=== PATIENT | female | born 1960 | race Caucasian/White ===

== ENCOUNTER 2018-01-04 08:46 | Inpatient (IN) | payer BC ==
[2018-01-04] MEDS ORDERED: NS 0.9% 1000 ML*IV.FLUID IV ONE (09:23)
[2018-01-04] MEDS ORDERED: Ketorolac INJ* 30 MG/ML 1 ML VIAL IV PUSH ONE (09:24)
[2018-01-04 09:59] LABS: ABS Basophils 0 10^3/ul (0-0.2); ABS Eosinophils 0 10^3/ul (0-0.6); ABS Lymphocytes 0.5 10^3/ul (1.0-4.8); ABS Monocytes 0.5 10^3/ul (0-0.8); ABS Neutrophils 7.3 10^3/ul (1.5-7.7); ABS Nucleated RBC 0 10^3/ul; Eosinophil % 0.5 % (0-6); Hematocrit 34 % (35-47); Hemoglobin 11.4 g/dl (12.0-16.0); Lymphocyte % 6.4 % (25-47); Mean Corpuscular HGB Conc 34 g/dl (31-36); Mean Corpuscular Hemoglobin 29 pg (27-31); Mean Corpuscular Volume 87 fL (80-97); Mean Platelet Volume 7.5 um3 (7.4-10.4); Nucleated Red Blood Cells % 0.1; Platelet Count 252 10^3/ul (150-450); Red Blood Count 3.89 10^6/ul (4.00-5.40); Red Cell Distribution Width 14 % (10.5-15); White Blood Count 8.4 10^3/ul (3.5-10.8)
--- NOTE | 2018-01-04 10:06 | ED ---
HPI Chest Pain - HPI Summary HPI Summary: This patient is a 57 year old F BIBA accompanied by her with a chief complaint of left posterior shoulder blade pain since 5:30 AM. Pt was sleeping when she was woken up by pain in her left shoulder. Since onset, the pain has radiated to her chest and neck. The patient rates the pain 5/10 in severity. Symptoms partially alleviated by aspirin and 2 NTG that were both administered by EMS. Patient reports fever, CP, mild cough, and sore throat, but states that she has had a cold for a month. Patient denies ear pain, trouble urinating, or hematuria. PMHx of PNA and bronchitis. No PMHx of CAD. Pt does not smoke tobacco. Pt does not take any medication regularly. - History of Current Complaint Chief Complaint: EDChestPainROMI Time Seen by Provider: 01/04/18 09:06 Hx Obtained From: Patient Onset/Duration: Started Hours Ago - 5:30 Timing: Constant, Lasting Hours Initial Severity: Moderate Current Severity: Moderate Pain Intensity: 4 Pain Scale Used: 0-10 Numeric Chest Pain Location: Mid Sternal Chest Pain Radiates: Yes Chest Pain Radiates To:: Back, Shoulder - left Character: Dull/Aching, Pressure/Squeezing Associated Signs and Symptoms: Positive: Chest Pain, Fever, Cough, Back Pain - Allergy/Home Medications Allergies/Adverse Reactions: Allergies Allergy/AdvReac Type Severity Reaction Status Date / Time Penicillins Allergy Rash Verified 01/04/18 08:59 Home Medications: Home Medications Acetylcysteine [Nac] 500 mg PO BID 01/04/18 [History Confirmed 01/04/18] Calcium Carbonate [Calcium] 150 mg PO DAILY 01/04/18 [History Confirmed 01/04/18 ] Cholecalciferol TAB* [Vitamin D TAB*] 5,000 units PO DAILY 01/04/18 [History Confirmed 01/04/18] Magnesium Oxide [Magnesium] 250 mg PO DAILY 01/04/18 [History Confirmed 01/04/18 ] Phosphorous 250 mg Tablet 1 tab PO DAILY 01/04/18 [History Confirmed 01/04/18] Selenium 100 mcg PO DAILY 01/04/18 [History Confirmed 01/04/18] Taurine [Nikhil Taurine] 2,000 mg PO DAILY 01/04/18 [History Confirmed 01/04/18] Vitamin B Complex CAP* [B Complex CAP*] 1 cap PO DAILY 01/04/18 [History Confirmed 01/04/18] Vitamin E Mixed [E400 Mixed] 400 unit PO DAILY 01/04/18 [History Confirmed 01/04] Zinc 50 mg PO DAILY 01/04/18 [History Confirmed 01/04/18] PMH/Surg Hx/FS Hx/Imm Hx Respiratory History: Reports: Hx Pneumonia History: Denies: Hx Dialysis EENT History: Denies: Hx Deafness Infectious Disease History: No Infectious Disease History: Denies: Traveled Outside the [place] in Last 30 Days - Family History Known Family History: Positive: Other - PNA - Social History Alcohol Use: Occasionally Substance Use Type: Reports: None Smoking Status (MU): Never Smoked Tobacco Review of Systems Positive: Fever Positive: Sore Throat. Negative: Ear Ache Positive: Chest Pain Positive: Cough Negative: dysuria, hematuria Positive: Other - Back Pain All Other Systems Reviewed And Are Negative: Yes Physical Exam - Summary Physical Exam Summary: Appearance: Well appearing, no pain distress Skin: warm, dry, reflects adequate perfusion. No rash. Bilateral skin ecchymosis present on the LE's. Head/face: normal Eyes: EOMI, DICK ENT: normal. Throat is clear. Neck: supple, non-tender Respiratory: CTA, breath sounds present. Cardiovascular: RRR, pulses symmetrical. Fine crackle in the left base. Elevated HR, nml BP. Abdomen: non-tender, soft Bowel Sounds: present Musculoskeletal: normal, strength/ROM intact. No TTP in the back. Neuro: normal, sensory motor intact, A&Ox3. Triage Information Reviewed: Yes Vital Signs On Initial Exam: Initial Vitals Temp Pulse Resp BP Pulse Ox 101.7 F 93 15 109/62 95 01/04/18 08:59 01/04/18 08:59 01/04/18 08:59 01/04/18 08:59 01/04/18 08:59 Vital Signs Reviewed: Yes Diagnostics - Vital Signs Vital Signs Temp Pulse Resp BP Pulse Ox 01/04/18 08:59 101.7 F 93 15 109/62 95 - Laboratory Lab Results: Lab Results 01/04/18 Range/Units 09:38 WBC 8.4 (3.5-10.8) 10^3/ul RBC 3.89 L (4.00-5.40) 10^6/ul Hgb 11.4 L (12.0-16.0) g/dl Hct 34 L (35-47) % MCV 87 (80-97) fL MCH 29 (27-31) pg MCHC 34 (31-36) g/dl RDW 14 (10.5-15) % Plt Count 252 (150-450) 10^3/ul MPV 7.5 (7.4-10.4) um3 Neut % (Auto) 87.0 H (38-83) % Lymph % (Auto) 6.4 L (25-47) % [place] % (Auto) 5.9 (0-7) % Eos % (Auto) 0.5 (0-6) % Baso % (Auto) 0.2 (0-2) % Absolute Neuts (auto) 7.3 (1.5-7.7) 10^3/ul Absolute Lymphs (auto) 0.5 L (1.0-4.8) 10^3/ul Absolute Monos (auto) 0.5 (0-0.8) 10^3/ul Absolute Eos (auto) 0 (0-0.6) 10^3/ul Absolute Basos (auto) 0 (0-0.2) 10^3/ul Absolute Nucleated RBC 0 10^3/ul Nucleated RBC % 0.1 Result Diagrams: 01/04/18 09:38 01/04/18 09:38 Lab Statement: Any lab studies that have been ordered have been reviewed, and results considered in the medical decision making process. - Radiology CXR Radiology Interpretation Completed By: Radiologist - CHEST X-RAY FINDINGS ARE MOST CONSISTENT WITH A LEFT UPPER LOBE SEGMENTAL PNEUMONIA. I RECOMMEND FOLLOW- UP IMAGING AFTER AN APPROPRIATE COURSE OF PHARMACOTHERAPY TO ASCERTAIN RESOLUTION. ED Physician reviewed this report - EKG 9:33 Cardiac Rate: NL - 94 bpm EKG Rhythm: Sinus Rhythm ST Segment: Normal EKG Interpretation: nml axis, nml interval Chest Pain Course/Dx - Course Course Of Treatment: Patient with abrupt onset of high fever, left posterior thoracic back pain. She has had minor cough and head cold for the last several days. CRP is grossly elevated but white count is normal. She has large lobar infiltrate in the left upper lobe. IV Levaquin was started and she will be admitted to the hospitalist service. Her pain is improved here. - Chest Pain Differential Diagnosis/HQI/PQRI: Acute SD, Aortic Aneurysm, GI Disease, Lower Respiratory Infection - Diagnoses Provider Diagnoses: PNA (pneumonia), Back pain, Sepsis - Provider Notifications Discussed Care Of Patient With: Citlali Bruno Time Discussed With Above Provider: 11:06 Instructed by Provider To: Admit As Inpatient Discharge - Sign-Out/Discharge Documenting (check all that apply): Patient Departure - Admit - Discharge Plan Condition: Fair Disposition: ADMITTED TO [facility] Referrals: No Primary Care Phys,NOPCP [Primary Care Provider] - - Billing Disposition and Condition Condition: FAIR Disposition: Admitted to [facility]
[2018-01-04 10:07] LABS: INR 1.13 (0.77-1.02)
[2018-01-04 10:13] LABS: EGFR Non-African American 128.1 (>60)
[2018-01-04 10:33] LABS: Urine Appearance Cloudy; Urine Blood Negative (Negative); Urine Color Amber; Urine Ketones 2+ (Negative); Urine Protein Negative (Negative); Urine Specific Gravity 1.023 (1.010-1.030); Urine Urobilinogen Negative (Negative)
[2018-01-04] MEDS ORDERED: Levofloxacin 750 MG IVPREMIX(* 750 MG/150 ML BAG IVPB ONE (10:55)
--- NOTE | 2018-01-04 10:55 | RAD ---
INDICATION: Fever and chest pain COMPARISON: None TECHNIQUE: PA and lateral views of the chest were obtained. FINDINGS: The heart and mediastinum are normal in size and contour. Overlying the left upper lobe and abutting the upper mediastinum is a density measuring 6.8 x 7.8 cm in the AP projection. This density is localized to the left upper lobe on the lateral view chest x-ray. The remaining visualized lungs are well aerated. Visualized bones are normal for the patient's age. There is no radiographic evidence of free air beneath the diaphragm IMPRESSION: CHEST X-RAY FINDINGS ARE MOST CONSISTENT WITH A LEFT UPPER LOBE SEGMENTAL PNEUMONIA. I RECOMMEND FOLLOW-UP IMAGING AFTER AN APPROPRIATE COURSE OF PHARMACOTHERAPY TO ASCERTAIN RESOLUTION.
[2018-01-04] MEDS ORDERED: Iohexol 350* (CONTRAST) 500 ML MDV IV ONE (11:42)
--- NOTE | 2018-01-04 12:06 | RAD ---
INDICATION: Shortness of breath and chest pain COMPARISON: None TECHNIQUE: Axial source images were acquired following the administration of 59 mL Omnipaque [address] angiographic technique. Coronal and sagittal reconstructed images were constructed and reviewed. FINDINGS: There there are no filling defects in the pulmonary arteries to indicate acute pulmonary embolic disease. There is a density with air bronchograms located at the medial aspect of the left upper lobe abutting the superior mediastinum and upper hilum that measures 4.8 x 6.8 cm in the axial plane and 7.7 cm in cephalocaudal projection. The heart is normal in size. There is no evidence of pericardial effusion. There is no evidence of aortic aneurysm or dissection. There is no definite mediastinal, hilar, or axillary lymphadenopathy. The visualized osseous structures appear normal. Limited views of the upper abdomen show no abnormalities. IMPRESSION: 1. No CT of evidence of pulmonary embolism. 2. Left upper lobe pneumonia with air bronchograms as described above. Recommend follow-up thoracic imaging after an appropriate course of therapy to ascertain resolution.
[2018-01-04] MEDS ORDERED: traMADol TAB* 50 MG PO PRN (12:48)
[2018-01-04] MEDS ORDERED: Ketorolac INJ* 15 MG/ML 1 ML VIAL IV PUSH PRN (12:49)
[2018-01-04] MEDS ORDERED: NS 0.9% 1000 ML* 1,000 ML IV SCH (13:00)
--- NOTE | 2018-01-04 15:36 | HP ---
HOSPITAL MEDICINE HISTORY AND PHYSICAL: DATE OF ADMISSION: 01/04/18 PRIMARY CARE PHYSICIAN: None. ATTENDING PHYSICIAN: Dr. Citlali Bruno * (dictation provided by Jessenia Coy NP ) CHIEF COMPLAINT: Chest pain. HISTORY OF PRESENT ILLNESS: Ms. Birmingham is a 57-year-old female with no known past medical history, who presents today to the hospital with concern for chest pain. Ms. Birmingham states that she is visiting from [place] and will be in the area until . Over the past month or so, she has been "battling a head cold." She states she has been using a neti pot to help clean her sinuses and has just felt very congested and stuffy. She has had a sore throat at night. She describes one episode of "eustachian tube pain" on the left side that resolved spontaneously. She was feeling well yesterday. She has had no cough. She had no fever. This morning, at approximately 5 a.m., she was woken suddenly from sleep with severe chest pain in the left side radiating into her shoulder. In the emergency room, Ms. Birmingham had a chest x-ray, which showed a left upper lobe infiltrate. Her white blood cell count is normal. Her BUN and creatinine are normal. Her CRP is elevated to 118.16. Troponin is 0.01. Her EKG showed sinus rhythm with a heart rate of 90 with no evidence of ischemia. PAST MEDICAL HISTORY: None. ALLERGIES: To PENICILLINS. FAMILY HISTORY: The patient reports her mother and father are alive and well. Her had does have hypertension. SOCIAL HISTORY: The patient denies smoking. She reports drinking alcohol occasionally. No report of drug use. She lives with her , who is the healthcare proxy. REVIEW OF SYSTEMS: A 14-point review of systems was completed with Ms. Birmingham and all those not mentioned above were negative. PHYSICAL EXAMINATION GENERAL: Ms. Birmingham is crying when I come in to the room. She states she is having severe discomfort when she takes a deep breath or moves around in the bed at all along the left side of her chest, but she is in no acute distress. VITAL SIGNS: Temperature 101.7, heart rate 89, respiratory rate 24, O2 saturation 96% on room air, blood pressure 112/61. LUNGS: Have rhonchi in the left middle to upper lobe, clear on the right, clear in the bases. HEART: S1, S2. No murmur, rub, or gallop, and regular. ABDOMEN: Soft and nontender with bowel sounds positive x4. EXTREMITIES: No cyanosis or edema. NEURO: She is alert, she is oriented x3. She moves all extremities equally. There is no facial asymmetry or focal weakness. Extraocular movements are intact. SKIN: Intact. DIAGNOSTIC STUDIES/LAB DATA: Sodium 140, potassium 3.9, chloride 106, serum bicarbonate 26, BUN 7, creatinine 0.50, glucose 108, lactic acid 0.7. Troponin 0.01. CRP 118.16. WBC 8.4, hemoglobin 11.4, hematocrit 34, platelet count 252. INR 1.13. Urine shows no evidence of infection. Chest x-ray shows "chest x-ray findings are most consistent with left upper lobe segmental pneumonia. I recommend followup imaging after appropriate course of pharmacotherapy to ascertain resolution." Chest thorax CTA is read as follows: "No CT evidence for pulmonary embolism, left upper lobe pneumonia with air bronchograms as described above, recommend followup thoracic imaging after an appropriate course of therapy to ascertain resolution." ASSESSMENT AND PLAN: Ms. Birmingham is a 57-year-old female with no known past medical history, who has had about a month of head cold with very mild symptoms , who now presents with the sudden onset of sharp pain on the left side of her chest and into her left shoulder, found to have a large left upper lobe pneumonia. My plans are for observation in the hospital for the followin. Pneumonia: The patient is meeting sepsis criteria for systemic inflammatory response syndrome criteria with tachypnea, mild tachycardia, and fever. Her white blood cell count is normal. Her CRP is elevated. She has a significant pneumonia on the left side. She also has quite severe pain. Our plans will be to observe her overnight. She will have Levaquin for antibiotic coverage. Blood cultures have been sent. Lactic acid is normal. We will seek to obtain better pain control with use of multiple agents including Toradol, Tylenol, tramadol, and oxycodone. The patient will have oxygen available p.r.n., but she is not needing that at this point. 2. DVT prophylaxis with SCDs. 3. Code status is full code. TIME SPENT: Approximately 60 minutes was spent on the admission of this patient ; more than half of the time was spent with the patient at the bedside reviewing the events leading up to this hospitalization, performing the physical examination, and reviewing my plan of care. JESSENIA COY NP [id number]/[facility] #: [id number] ANGELA
[2018-01-04] MEDS: Magnesium Oxide TAB* 400 MG PO SCH (17:23)
[2018-01-04] MEDS: oxyCODONE TAB* 5 MG TAB PO PRN ×2 (17:28→21:41)
[2018-01-04] MEDS: Benzocaine/Menthol LOZ* 1 LOZENGE PO PRN (22:18)
[2018-01-05] MEDS: oxyCODONE TAB* 5 MG TAB PO PRN ×3 (03:43→13:31)
[2018-01-05 06:50] LABS: ABS Basophils 0 10^3/ul (0-0.2); ABS Eosinophils 0.1 10^3/ul (0-0.6); ABS Lymphocytes 0.9 10^3/ul (1.0-4.8); ABS Monocytes 0.6 10^3/ul (0-0.8); ABS Neutrophils 4.4 10^3/ul (1.5-7.7); ABS Nucleated RBC 0 10^3/ul; Eosinophil % 1.6 % (0-6); Hematocrit 30 % (35-47); Hemoglobin 10.3 g/dl (12.0-16.0); Lymphocyte % 14.9 % (25-47); Mean Corpuscular HGB Conc 34 g/dl (31-36); Mean Corpuscular Hemoglobin 30 pg (27-31); Mean Corpuscular Volume 88 fL (80-97); Mean Platelet Volume 7.7 um3 (7.4-10.4); Nucleated Red Blood Cells % 0.1; Platelet Count 186 10^3/ul (150-450); Red Blood Count 3.46 10^6/ul (4.00-5.40); Red Cell Distribution Width 14 % (10.5-15)
[2018-01-05 07:06] LABS: EGFR Non-African American 110.1 (>60)
[2018-01-05] MEDS: Levofloxacin TAB* 750 MG PO SCH (08:14)
[2018-01-05] MEDS: Cholecalciferol TAB* 1000 UNITS PO SCH (08:14)
[2018-01-05] MEDS ORDERED: Calcium Carbonate TAB* 1250 MG (CALCIUM 500 MG) PO SCH (09:00)
[2018-01-05] MEDS: Albuterol/Ipratropium NEB.SOL* Albuterol 2.5 MG/Ipratropium 0.5 MG 3 ML INH SCH ×3 (14:20→21:26)
--- NOTE | 2018-01-05 15:46 | PN ---
Subjective Date of Service: 01/05/18 Interval History: Patient seen and examined. Patient states she is feeling like her breathing is somewhat improved, however, she now has cough, and continues to use O2 at rest. Noted her respirations are shallow, as she states she has pain with mild inspiratory effort. Denies chest pain, Objective Active Medications: Acetaminophen (Tylenol Tab*) 650 mg PO Q6H PRN PRN Reason: pain/fever Albuterol/Ipratropium (Duoneb (Albuterol 2.5 Mg/Ipratropium 0.5 Mg)) 1 neb INH Q4H [facility] Stop: 01/05/18 21:11 Last Admin: 01/05/18 14:20 Dose: 1 neb Cholecalciferol (Vitamin D Tab*) 5,000 units PO DAILY [facility] Last Admin: 01/05/18 08:14 Dose: 5,000 units Guaifenesin (Mucinex*) 600 mg PO BID [facility] Ketorolac Tromethamine (Toradol Inj*) 15 mg IV PUSH Q6H PRN PRN Reason: PAIN Levofloxacin (Levaquin Tab*) 750 mg PO DAILY [facility] Last Admin: 01/05/18 08:14 Dose: 750 mg Magnesium Oxide (Magox 400 Tab*) 400 mg PO 1800 [facility] Last Admin: 01/04/18 17:23 Dose: 400 mg Oxycodone HCl (Roxycodone Tab*) 5 mg PO Q4H PRN PRN Reason: PAIN Last Admin: 01/05/18 13:31 Dose: 5 mg Throat Lozenges (Chloraseptic Kim*) 1 kim PO Q6H PRN PRN Reason: SORE THROAT Last Admin: 01/04/18 22:18 Dose: 1 kim Tramadol HCl (Ultram*) 100 mg PO Q6H PRN PRN Reason: PAIN Last Admin: 01/04/18 16:03 Dose: 100 mg Vital Signs - 8 hr 01/05/18 01/05/18 01/05/18 08:00 08:15 11:17 Temperature 99.2 F Pulse Rate 79 Respiratory 18 18 12 Rate Blood Pressure 105/57 (mmHg) O2 Sat by Pulse 96 Oximetry 01/05/18 01/05/18 01/05/18 12:02 13:31 14:24 Temperature Pulse Rate 84 Respiratory 18 20 20 Rate Blood Pressure (mmHg) O2 Sat by Pulse 99 Oximetry Oxygen Devices in Use Now: Nasal Cannula Appearance: alert, NAD Eyes: No Scleral Icterus, PERRLA Ears/Nose/Mouth/Throat: NL Teeth, Lips, Gums, Mucous Membranes Moist Neck: NL Appearance and Movements; NL JVP, Trachea Midline Respiratory: Symmetrical Chest Expansion and Respiratory Effort, - - low lung volumes, diminished bases mild exp wheeze on left, not able to expectorate Cardiovascular: NL Sounds; No Murmurs; No JVD, RRR Abdominal: NL Sounds; No Tenderness; No Distention Extremities: No Edema Skin: No Rash or Ulcers Neurological: Alert and Oriented x 3, NL Gait, NL Muscle Strength and Tone Nutrition: Taking PO's Result Diagrams: 01/05/18 06:10 01/05/18 06:10 Additional Lab and Data: Lab Results 01/04/18 Range/Units 09:38 WBC 8.4 (3.5-10.8) 10^3/ul RBC 3.89 L (4.00-5.40) 10^6/ul Hgb 11.4 L (12.0-16.0) g/dl Hct 34 L (35-47) % MCV 87 (80-97) fL MCH 29 (27-31) pg MCHC 34 (31-36) g/dl RDW 14 (10.5-15) % Plt Count 252 (150-450) 10^3/ul MPV 7.5 (7.4-10.4) um3 Neut % (Auto) 87.0 H (38-83) % Lymph % (Auto) 6.4 L (25-47) % [place] % (Auto) 5.9 (0-7) % Eos % (Auto) 0.5 (0-6) % Baso % (Auto) 0.2 (0-2) % Absolute Neuts (auto) 7.3 (1.5-7.7) 10^3/ul Absolute Lymphs (auto) 0.5 L (1.0-4.8) 10^3/ul Absolute Monos (auto) 0.5 (0-0.8) 10^3/ul Absolute Eos (auto) 0 (0-0.6) 10^3/ul Absolute Basos (auto) 0 (0-0.2) 10^3/ul Absolute Nucleated RBC 0 10^3/ul Nucleated RBC % 0.1 Microbiology and Other Data: Microbiology 01/04/18 09:50 Aerobic Blood Culture - Preliminary Blood Venous No Growth Day 1 Anaerobic Blood Culture - Preliminary No Growth Day 1 01/04/18 09:38 Aerobic Blood Culture - Preliminary Blood Venous No Growth Day 1 Anaerobic Blood Culture - Preliminary No Growth Day 1 01/04/18 09:38 Legionella Urinary Antigen - Final Urine Negative Legionella Antigen Streptococcus pneumoniae Ag Screen - Final Negative S. pneumo Antigen Assess/Plan/Problems-Billing Assessment: This is a 57 year old female with that presented to ER with CAP, meeting SIRS criteria, admitted for same. - Patient Problems (1) CAP (community acquired pneumonia) Code(s): J18.9 - PNEUMONIA, UNSPECIFIED ORGANISM SNOMED Code(s): 018859080 Comment: - Continue levaquin - Add IS - Add duoneb x3 - Add mucinex - O2 for support, wean down (2) SIRS (systemic inflammatory response syndrome) Code(s): R65.10 - SIRS OF NON-INFECTIOUS ORIGIN W/O ACUTE ORGAN DYSFUNCTION SNOMED Code(s): 667807934 Comment: - Hypotension resolved - Fever resolved/improved - Continue to monitor and follow cultures Status and Disposition: If patient can wean off O2 may be able to DC in AM.
[2018-01-05] MEDS: Magnesium Oxide TAB* 400 MG PO SCH (17:33)
[2018-01-05] MEDS: Acetaminophen TAB* 325 MG PO PRN (19:31)
[2018-01-05] MEDS: guaiFENesin ER TAB 600 MG PO SCH (20:15)
[2018-01-06] MEDS: Cholecalciferol TAB* 1000 UNITS PO SCH (07:44)
[2018-01-06] MEDS: Levofloxacin TAB* 750 MG PO SCH (07:44)
[2018-01-06] MEDS: guaiFENesin ER TAB 600 MG PO SCH ×2 (07:44→21:21)
[2018-01-06 11:08] LABS: ABS Basophils 0 10^3/ul (0-0.2); ABS Eosinophils 0.1 10^3/ul (0-0.6); ABS Lymphocytes 0.5 10^3/ul (1.0-4.8); ABS Monocytes 0.8 10^3/ul (0-0.8); ABS Neutrophils 7.2 10^3/ul (1.5-7.7); ABS Nucleated RBC 0 10^3/ul; Eosinophil % 1.1 % (0-6); Hematocrit 32 % (35-47); Hemoglobin 11.2 g/dl (12.0-16.0); Lymphocyte % 5.3 % (25-47); Mean Corpuscular HGB Conc 35 g/dl (31-36); Mean Corpuscular Hemoglobin 30 pg (27-31); Mean Corpuscular Volume 86 fL (80-97); Mean Platelet Volume 7.4 um3 (7.4-10.4); Nucleated Red Blood Cells % 0; Platelet Count 245 10^3/ul (150-450); Red Blood Count 3.77 10^6/ul (4.00-5.40); Red Cell Distribution Width 14 % (10.5-15); White Blood Count 8.6 10^3/ul (3.5-10.8)
--- NOTE | 2018-01-06 12:25 | PN ---
Subjective Date of Service: 01/06/18 Interval History: Patient seen and examined. Fever overnight, sttes cough is now productive. Off O2, no SOB. Complaining of pimple-like lesion on left anterior chest that seems to be more red and diffuse today, also painful. Requested RN to james erythema yesterday, appears to be slightly past the margins today. Denies chills, no headache, no n/v, no futher complaints. Objective Active Medications: Acetaminophen (Tylenol Tab*) 650 mg PO Q6H PRN PRN Reason: pain/fever Last Admin: 01/05/18 19:31 Dose: 650 mg Cholecalciferol (Vitamin D Tab*) 5,000 units PO DAILY [facility] Last Admin: 01/06/18 07:44 Dose: 5,000 units Guaifenesin (Mucinex*) 600 mg PO BID [facility] Last Admin: 01/06/18 07:44 Dose: 600 mg Ketorolac Tromethamine (Toradol Inj*) 15 mg IV PUSH Q6H PRN PRN Reason: PAIN Levofloxacin (Levaquin Tab*) 750 mg PO DAILY [facility] Last Admin: 01/06/18 07:44 Dose: 750 mg Magnesium Oxide (Magox 400 Tab*) 400 mg PO 1800 [facility] Last Admin: 01/05/18 17:33 Dose: 400 mg Oxycodone HCl (Roxycodone Tab*) 5 mg PO Q4H PRN PRN Reason: PAIN Last Admin: 01/05/18 13:31 Dose: 5 mg Throat Lozenges (Chloraseptic Kim*) 1 kim PO Q6H PRN PRN Reason: SORE THROAT Last Admin: 01/04/18 22:18 Dose: 1 kim Tramadol HCl (Ultram*) 100 mg PO Q6H PRN PRN Reason: PAIN Last Admin: 01/04/18 16:03 Dose: 100 mg Vital Signs - 8 hr 01/06/18 01/06/18 01/06/18 07:46 08:05 11:16 Temperature 98.1 F 99.3 F Pulse Rate 95 103 Respiratory 18 18 16 Rate Blood Pressure 109/67 111/65 (mmHg) O2 Sat by Pulse 97 95 Oximetry Oxygen Devices in Use Now: None Appearance: Alert, NAD Eyes: No Scleral Icterus, PERRLA Ears/Nose/Mouth/Throat: NL Teeth, Lips, Gums, Mucous Membranes Moist Neck: NL Appearance and Movements; NL JVP, Trachea Midline Respiratory: - - shallow respirations with improved air exchange, diminished bases with bilateral rhonchi Cardiovascular: NL Sounds; No Murmurs; No JVD, RRR, No Edema Extremities: No Edema, No Clubbing, Cyanosis Neurological: Alert and Oriented x 3, NL Sensation, NL Gait Nutrition: Taking PO's Result Diagrams: 01/06/18 10:55 01/05/18 06:10 Additional Lab and Data: Lab Results 01/04/18 Range/Units 09:38 WBC 8.4 (3.5-10.8) 10^3/ul RBC 3.89 L (4.00-5.40) 10^6/ul Hgb 11.4 L (12.0-16.0) g/dl Hct 34 L (35-47) % MCV 87 (80-97) fL MCH 29 (27-31) pg MCHC 34 (31-36) g/dl RDW 14 (10.5-15) % Plt Count 252 (150-450) 10^3/ul MPV 7.5 (7.4-10.4) um3 Neut % (Auto) 87.0 H (38-83) % Lymph % (Auto) 6.4 L (25-47) % [place] % (Auto) 5.9 (0-7) % Eos % (Auto) 0.5 (0-6) % Baso % (Auto) 0.2 (0-2) % Absolute Neuts (auto) 7.3 (1.5-7.7) 10^3/ul Absolute Lymphs (auto) 0.5 L (1.0-4.8) 10^3/ul Absolute Monos (auto) 0.5 (0-0.8) 10^3/ul Absolute Eos (auto) 0 (0-0.6) 10^3/ul Absolute Basos (auto) 0 (0-0.2) 10^3/ul Absolute Nucleated RBC 0 10^3/ul Nucleated RBC % 0.1 Microbiology and Other Data: Microbiology 01/04/18 09:50 Aerobic Blood Culture - Preliminary Blood Venous No Growth Day 1 Anaerobic Blood Culture - Preliminary No Growth Day 1 01/04/18 09:38 Aerobic Blood Culture - Preliminary Blood Venous No Growth Day 1 Anaerobic Blood Culture - Preliminary No Growth Day 1 01/04/18 09:38 Legionella Urinary Antigen - Final Urine Negative Legionella Antigen Streptococcus pneumoniae Ag Screen - Final Negative S. pneumo Antigen Assess/Plan/Problems-Billing Assessment: This is a 57 year old female with that presented to ER with CAP, meeting SIRS criteria, admitted for same, now noting area of erythema and pimple like lesion on left anterior chest. - Patient Problems (1) CAP (community acquired pneumonia) Code(s): J18.9 - PNEUMONIA, UNSPECIFIED ORGANISM SNOMED Code(s): 397745194 Comment: - Continue levaquin, IS, albuterol Q4 PRN and mucinex - Off O2 - Repeat WBC is normal, CRP has increased to 248.3 (2) SIRS (systemic inflammatory response syndrome) Code(s): R65.10 - SIRS OF NON-INFECTIOUS ORIGIN W/O ACUTE ORGAN DYSFUNCTION SNOMED Code(s): 039854114 Comment: - Hypotension resolved - Fever persisted overnight with mild tachycardia - Cultures remain negative - Concern that fever may be from new cellulitis on chest? Cannot r/o MRSA, as this has developed over the last 24 hours (3) Cellulitis of chest wall Code(s): L03.313 - CELLULITIS OF CHEST WALL SNOMED Code(s): 19571105 Comment: - Patient states she thinks she may have had a bug bite at admission, as she was at an outdoor wedding - No fluctuence noted, but there is a small area of induration at the center with surrounding erythema and pain on left anterior chest below the clavicle - Will attempt to culture center, does not need full I&D - After culture, will add one dose vancomycin, additional blood cultures given fever started after this lesion was noted, may consult ID depending on results Status and Disposition: If patient can wean off O2 may be able to DC in AM.
[2018-01-06] MEDS ORDERED: Vancomycin(*) 1,000 MG in NS 0.9% 250 ML* 250 ML IVPB ONE (12:45)
[2018-01-06] MEDS ORDERED: Vancomycin per Pharmacy* NOTE FOLLOW UP PRN (12:54)
[2018-01-06] MEDS: Acetaminophen TAB* 325 MG PO PRN (16:28)
[2018-01-06] MEDS: Magnesium Oxide TAB* 400 MG PO SCH (17:15)
--- NOTE | 2018-01-06 20:24 | PN ---
Hospitalist Progress Note Date of Service: 01/06/18 Noted that patient's left chest wall has a 4-5cm area of erythema, pain and some itching on the left neck. Appears to have small area of clear crusting in center that looks like it may have been a bug bite or scratch. Area of erythema has spread beyond the markings from yesterday. Explained to patient that I would like to attempt a culture swab on the area in the center to assess for exudate and test for pathogens, primarily MRSA. Benefits and risks explained in detail. Patient agreeable. Consent obtained. Time out called. Area draped and swabbed with betadine. 21 gauge needle used to gently scrape center of induration and unroof crusted center. No pus noted, no overt exudative material noted, no fluctuance. Some blood oozing. Wound swabbed and sent for culture. Patient reported no pain and tolerated procedure well. Dry non-adherent dressing applied. Region of erythema re-marked by RN at bedside. Please see paper chart for further documentation. Patient placed on vancomycin. Consult with Dr. Mcgee ordered.
[2018-01-06] MEDS: Vancomycin(*) 750 MG in NS 0.9% 250 ML* 250 ML IVPB SCH (21:21)
[2018-01-07] MEDS: Vancomycin(*) 750 MG in NS 0.9% 250 ML* 250 ML IVPB SCH ×2 (05:50→16:00)
[2018-01-07] MEDS: Levofloxacin TAB* 750 MG PO SCH (09:23)
[2018-01-07] MEDS: guaiFENesin ER TAB 600 MG PO SCH ×2 (09:23→22:02)
[2018-01-07] MEDS: Cholecalciferol TAB* 1000 UNITS PO SCH (09:23)
[2018-01-07] MEDS: Benzonatate CAP* 100 MG PO SCH ×2 (12:04→22:01)
[2018-01-07] MEDS: Benzocaine/Menthol LOZ* 1 LOZENGE PO PRN ×2 (12:05→22:02)
[2018-01-07] MEDS ORDERED: Vancomycin Trough Check NOTE FOLLOW UP ONE (14:00)
--- NOTE | 2018-01-07 14:51 | PN ---
Subjective Date of Service: 01/07/18 Interval History: Patient seen and examined. Several discussions with Dr. Mcgee re: POC and atbx. Patient is now expectorating and having less bony chest pain, but significant cough overnight that prevented her from sleeping. Still with fevers , does feel pain around chest cellulitis is improving. Does state she is having RUQ sharp pains after eating and now at rest which is new for her. Objective Active Medications: Acetaminophen (Tylenol Tab*) 650 mg PO Q6H PRN PRN Reason: pain/fever Last Admin: 01/06/18 16:28 Dose: 650 mg Benzonatate (Tessalon Cap*) 100 mg PO BID [facility] Last Admin: 01/07/18 12:04 Dose: Not Given Cholecalciferol (Vitamin D Tab*) 5,000 units PO DAILY [facility] Last Admin: 01/07/18 09:23 Dose: 5,000 units Guaifenesin (Mucinex*) 600 mg PO BID [facility] Last Admin: 01/07/18 09:23 Dose: 600 mg Vancomycin HCl 750 mg/ Sodium (Chloride) 250 mls @ 166.667 mls/hr IVPB Q8HR [facility] Last Admin: 01/07/18 05:50 Dose: 166.667 mls/hr Ceftriaxone Sodium 1 gm/ (Sodium Chloride) 50 mls @ 200 mls/hr IVPB Q24H [facility] Ketorolac Tromethamine (Toradol Inj*) 15 mg IV PUSH Q6H PRN PRN Reason: PAIN Magnesium Oxide (Magox 400 Tab*) 400 mg PO 1800 [facility] Last Admin: 01/06/18 17:15 Dose: 400 mg Oxycodone HCl (Roxycodone Tab*) 5 mg PO Q4H PRN PRN Reason: PAIN Last Admin: 01/05/18 13:31 Dose: 5 mg Pharmacy Consult (Vancomycin Per Pharmacy*) 1 note FOLLOW UP . PRN PRN Reason: PER PROTOCOL Throat Lozenges (Chloraseptic Kim*) 1 kim PO Q6H PRN PRN Reason: SORE THROAT Last Admin: 01/07/18 12:05 Dose: 1 kim Tramadol HCl (Ultram*) 100 mg PO Q6H PRN PRN Reason: PAIN Last Admin: 01/04/18 16:03 Dose: 100 mg Vital Signs - 8 hr 01/07/18 01/07/18 01/07/18 07:41 08:00 11:33 Temperature 99.0 F 98.5 F Pulse Rate 88 97 Respiratory 14 14 14 Rate Blood Pressure 107/62 120/64 (mmHg) O2 Sat by Pulse 95 96 Oximetry Oxygen Devices in Use Now: None Appearance: Alert, ambulatory, NAD Eyes: No Scleral Icterus, PERRLA Ears/Nose/Mouth/Throat: NL Teeth, Lips, Gums, Mucous Membranes Moist Neck: NL Appearance and Movements; NL JVP, Trachea Midline Respiratory: Symmetrical Chest Expansion and Respiratory Effort, Clear to Auscultation Cardiovascular: NL Sounds; No Murmurs; No JVD, No Edema Abdominal: No Hepatosplenomegaly, - - tender to RUQ, no rigidity or rebound Lymphatic: No Cervical Adenopathy Extremities: No Edema, No Clubbing, Cyanosis Skin: No Rash or Ulcers Neurological: Alert and Oriented x 3 Nutrition: Taking PO's Result Diagrams: 01/06/18 10:55 01/05/18 06:10 Additional Lab and Data: Lab Results 01/04/18 Range/Units 09:38 WBC 8.4 (3.5-10.8) 10^3/ul RBC 3.89 L (4.00-5.40) 10^6/ul Hgb 11.4 L (12.0-16.0) g/dl Hct 34 L (35-47) % MCV 87 (80-97) fL MCH 29 (27-31) pg MCHC 34 (31-36) g/dl RDW 14 (10.5-15) % Plt Count 252 (150-450) 10^3/ul MPV 7.5 (7.4-10.4) um3 Neut % (Auto) 87.0 H (38-83) % Lymph % (Auto) 6.4 L (25-47) % [place] % (Auto) 5.9 (0-7) % Eos % (Auto) 0.5 (0-6) % Baso % (Auto) 0.2 (0-2) % Absolute Neuts (auto) 7.3 (1.5-7.7) 10^3/ul Absolute Lymphs (auto) 0.5 L (1.0-4.8) 10^3/ul Absolute Monos (auto) 0.5 (0-0.8) 10^3/ul Absolute Eos (auto) 0 (0-0.6) 10^3/ul Absolute Basos (auto) 0 (0-0.2) 10^3/ul Absolute Nucleated RBC 0 10^3/ul Nucleated RBC % 0.1 Microbiology and Other Data: Microbiology 01/04/18 09:50 Aerobic Blood Culture - Preliminary Blood Venous No Growth Day 1 Anaerobic Blood Culture - Preliminary No Growth Day 1 01/04/18 09:38 Aerobic Blood Culture - Preliminary Blood Venous No Growth Day 1 Anaerobic Blood Culture - Preliminary No Growth Day 1 01/04/18 09:38 Legionella Urinary Antigen - Final Urine Negative Legionella Antigen Streptococcus pneumoniae Ag Screen - Final Negative S. pneumo Antigen Assess/Plan/Problems-Billing Assessment: This is a 57 year old female with that presented to ER with CAP, meeting SIRS criteria, admitted for same, now noting area of erythema and pimple like lesion on left anterior chest and also complaint of RUQ pain today with continued fevers. - Patient Problems (1) CAP (community acquired pneumonia) Code(s): J18.9 - PNEUMONIA, UNSPECIFIED ORGANISM SNOMED Code(s): 912866999 Comment: - DC levaquin, start ceftriaxone today, IS, albuterol Q4 PRN and mucinex - Off O2 - Repeat WBC is normal, CRP has increased to 248.3 (2) SIRS (systemic inflammatory response syndrome) Code(s): R65.10 - SIRS OF NON-INFECTIOUS ORIGIN W/O ACUTE ORGAN DYSFUNCTION SNOMED Code(s): 340374543 Comment: - Hypotension resolved but had some low pressures overnight, no tachycardia today - Redraw blood cultures - Follow wound and sputum cultures, may re-image chest in am (3) Cellulitis of chest wall Code(s): L03.313 - CELLULITIS OF CHEST WALL SNOMED Code(s): 73336333 Comment: - Patient states she thinks she may have had a bug bite at admission, as she was at an outdoor wedding - Erythema seems to be retracting today - Vanco trough only 5, discussed with pharmacy to dose adjust (4) RUQ abdominal pain Code(s): R10.11 - RIGHT UPPER QUADRANT PAIN SNOMED Code(s): 082221828 Comment: - Will send for US gallbladder Status and Disposition: Remain inpatient for continue IV atbx
[2018-01-07] MEDS ORDERED: cefTRIAXone(*) 1 GM in NS 0.9% 50 ML* 50 ML IVPB SCH (15:00)
--- NOTE | 2018-01-07 15:37 | RAD ---
INDICATION: Right upper quadrant pain COMPARISON: None TECHNIQUE: Longitudinal and transverse scans of the right upper quadrant were obtained. Doppler interrogation of the hepatic and portal venous system was performed. FINDINGS: Liver: The liver is normal in size and echogenicity. There are no focal masses. The liver measures 15.3 cm in cephalocaudal dimension. Vessels: There is normal hepatic and portal venous flow. Bile ducts: There is no evidence of intrahepatic or extrahepatic ductal dilatation. The common duct measures 0.4 cm. Gallbladder: The gallbladder is contracted which likely accounts for mild gallbladder wall thickening. The wall measures 0.4 cm. There is no cholelithiasis, pericholecystic fluid, or tenderness over the gallbladder. Pancreas: The visualized pancreas appears normal Right kidney: The right kidney is normal in size and echogenicity. There are no masses or calculi. There is no evidence of hydronephrosis. The right kidney measures 11.2 x 4.2 x 5.1 cm. IVC and aorta: The aorta and superior vena cava appear normal. Fluid: There is no ascites. Other: None. IMPRESSION: MILD THICKENING OF THE GALLBLADDER WALL, OTHERWISE NEGATIVE
[2018-01-07] MEDS: Vancomycin(*) 1,000 MG in NS 0.9% 250 ML* 250 ML IVPB SCH (16:59)
[2018-01-07] MEDS: Magnesium Oxide TAB* 400 MG PO SCH (22:01)
[2018-01-07] MEDS: diPHENhydraMINE PO* 25 MG PO PRN (22:20)
[2018-01-07] MEDS ORDERED: diPHENhydraMINE PO* 25 MG ONE (22:29)
[2018-01-08] MEDS: Vancomycin(*) 1,000 MG in NS 0.9% 250 ML* 250 ML IVPB SCH ×2 (01:15→08:14)
[2018-01-08] MEDS: Cholecalciferol TAB* 1000 UNITS PO SCH (08:13)
[2018-01-08] MEDS: guaiFENesin ER TAB 600 MG PO SCH ×2 (08:14→20:58)
[2018-01-08] MEDS: Benzonatate CAP* 100 MG PO SCH ×2 (08:14→20:58)
[2018-01-08] MEDS: Benzocaine/Menthol LOZ* 1 LOZENGE PO PRN ×2 (08:14→23:45)
--- NOTE | 2018-01-08 14:10 | PN ---
Subjective Date of Service: 01/08/18 Interval History: SOme cough, occ small amt yellow sputum. Overall better. No chills or sweats. Objective Active Medications: Acetaminophen (Tylenol Tab*) 650 mg PO Q6H PRN PRN Reason: pain/fever Last Admin: 01/06/18 16:28 Dose: 650 mg Benzonatate (Tessalon Cap*) 100 mg PO BID [facility] Last Admin: 01/08/18 08:14 Dose: 100 mg Cefuroxime Axetil (Ceftin Tab(*)) 500 mg PO BID [facility] Cholecalciferol (Vitamin D Tab*) 5,000 units PO DAILY [facility] Last Admin: 01/08/18 08:13 Dose: 5,000 units Diphenhydramine HCl (Benadryl Po*) 25 mg PO ONCE PRN PRN Reason: ITCHING Last Admin: 01/07/18 22:20 Dose: 25 mg Guaifenesin (Mucinex*) 600 mg PO BID [facility] Last Admin: 01/08/18 08:14 Dose: 600 mg Ceftriaxone Sodium 1 gm/ (Sodium Chloride) 50 mls @ 200 mls/hr IVPB ONCE ONE Stop: 01/08/18 14:44 Magnesium Oxide (Magox 400 Tab*) 400 mg PO 1800 [facility] Last Admin: 01/07/18 22:01 Dose: 400 mg Oxycodone HCl (Roxycodone Tab*) 5 mg PO Q4H PRN PRN Reason: PAIN Last Admin: 01/05/18 13:31 Dose: 5 mg Pharmacy Consult (Vancomycin Per Pharmacy*) 1 note FOLLOW UP . PRN PRN Reason: PER PROTOCOL Throat Lozenges (Chloraseptic Kim*) 1 kim PO Q6H PRN PRN Reason: SORE THROAT Last Admin: 01/08/18 08:14 Dose: 1 kim Tramadol HCl (Ultram*) 100 mg PO Q6H PRN PRN Reason: PAIN Last Admin: 01/04/18 16:03 Dose: 100 mg Vital Signs - 8 hr 01/08/18 01/08/18 01/08/18 07:51 08:00 11:32 Temperature 98.0 F 98.3 F Pulse Rate 83 97 Respiratory 16 16 17 Rate Blood Pressure 124/67 109/68 (mmHg) O2 Sat by Pulse 95 93 Oximetry Oxygen Devices in Use Now: None Appearance: Alert, partly up in bed. In good spirits. Occ mild dry cough during my visit, otherwise looks comfortable. Eyes: No Scleral Icterus Respiratory: Symmetrical Chest Expansion and Respiratory Effort, Clear to Auscultation, Clear to Percussion Cardiovascular: NL Sounds; No Murmurs; No JVD, RRR, No Edema, - Extremities: No Edema, No Clubbing, Cyanosis, - Skin: No Rash or Ulcers, No Nodules or Sclerosis, - Neurological: Alert and Oriented x 3, NL Sensation Result Diagrams: 01/06/18 10:55 01/05/18 06:10 Additional Lab and Data: Lab Results 01/04/18 Range/Units 09:38 WBC 8.4 (3.5-10.8) 10^3/ul RBC 3.89 L (4.00-5.40) 10^6/ul Hgb 11.4 L (12.0-16.0) g/dl Hct 34 L (35-47) % MCV 87 (80-97) fL MCH 29 (27-31) pg MCHC 34 (31-36) g/dl RDW 14 (10.5-15) % Plt Count 252 (150-450) 10^3/ul MPV 7.5 (7.4-10.4) um3 Neut % (Auto) 87.0 H (38-83) % Lymph % (Auto) 6.4 L (25-47) % [place] % (Auto) 5.9 (0-7) % Eos % (Auto) 0.5 (0-6) % Baso % (Auto) 0.2 (0-2) % Absolute Neuts (auto) 7.3 (1.5-7.7) 10^3/ul Absolute Lymphs (auto) 0.5 L (1.0-4.8) 10^3/ul Absolute Monos (auto) 0.5 (0-0.8) 10^3/ul Absolute Eos (auto) 0 (0-0.6) 10^3/ul Absolute Basos (auto) 0 (0-0.2) 10^3/ul Absolute Nucleated RBC 0 10^3/ul Nucleated RBC % 0.1 Microbiology and Other Data: Microbiology 01/04/18 09:50 Aerobic Blood Culture - Preliminary Blood Venous No Growth Day 1 Anaerobic Blood Culture - Preliminary No Growth Day 1 01/04/18 09:38 Aerobic Blood Culture - Preliminary Blood Venous No Growth Day 1 Anaerobic Blood Culture - Preliminary No Growth Day 1 01/04/18 09:38 Legionella Urinary Antigen - Final Urine Negative Legionella Antigen Streptococcus pneumoniae Ag Screen - Final Negative S. pneumo Antigen Assess/Plan/Problems-Billing Assessment: This is a 57 year old female with that presented to ER with CAP, meeting SIRS criteria, admitted for same, now noting area of erythema and pimple like lesion on left anterior chest and also complaint of RUQ pain today with continued fevers. - Patient Problems (1) CAP (community acquired pneumonia) Current Visit: Yes Status: Acute Code(s): J18.9 - PNEUMONIA, UNSPECIFIED ORGANISM SNOMED Code(s): 320917862 Comment: Last dose ceftriaxone 01/08 2 PM, start cefuroxime 500 mg bid 01/09 AM. Continue mucinex - Off O2 - Repeat CRP 01/09. (2) Cellulitis of chest wall Current Visit: Yes Status: Acute Code(s): L03.313 - CELLULITIS OF CHEST WALL SNOMED Code(s): 48063618 Comment: - Patient states she thinks she may have had a bug bite at admission, as she was at an outdoor wedding - Erythema within outer ink margin. Slowness to complete resolution suggests an allergic component. Status and Disposition: Remain inpatient for continue IV atbx
[2018-01-08] MEDS ORDERED: cefTRIAXone(*) 1 GM in NS 0.9% 50 ML* 50 ML IVPB ONE (14:30)
[2018-01-08] MEDS: Magnesium Oxide TAB* 400 MG PO SCH (17:27)
[2018-01-08] MEDS: Docusate CAP* 100 MG PO SCH (20:58)
[2018-01-08] MEDS: diPHENhydraMINE PO* 25 MG PO PRN (20:58)
[2018-01-09] MEDS ORDERED: Vancomycin Trough Check NOTE FOLLOW UP ONE (07:30)
[2018-01-09 07:36] LABS: EGFR Non-African American 144.7 (>60)
[2018-01-09 08:00] LABS: Vancomycin Trough 2.9 mcg/mL
[2018-01-09] MEDS: Benzonatate CAP* 100 MG PO SCH (08:11)
[2018-01-09] MEDS: guaiFENesin ER TAB 600 MG PO SCH (08:11)
[2018-01-09] MEDS: Docusate CAP* 100 MG PO SCH ×2 (08:11→08:13)
[2018-01-09] MEDS: Cholecalciferol TAB* 1000 UNITS PO SCH (08:11)
[2018-01-09] MEDS ORDERED: ceFUROXime TAB(*) 250 MG PO SCH (09:00)
[2018-01-09 09:36] VITALS: BP 117/76
--- NOTE | 2018-01-09 12:25 | DS ---
AMENDED REPORT NOW INCLUDES COSIGNER DESIGNATION - ESIGNED BEFORE ADJUSTMENT DATE OF ADMISSION: 01/06/2018. DATE OF DISCHARGE: 01/09/2018. ADMITTING PHYSICIAN: Dr. Citlali Bruno. ATTENDING HOSPITALIST: Dr. George Salazar * (dictated by JAMIE Morrow). PRIMARY CARE PHYSICIAN: Primary care at [facility] in [place]. ADMISSION DIAGNOSES: 1. Community-acquired pneumonia. 2. Chest wall pain and cellulitis. 3. Anxiety. DISCHARGE DIAGNOSES: 1. Community-acquired pneumonia. 2. Chest wall pain and cellulitis. 3. Anxiety. CONSULTATIONS: None. BRIEF MEDICAL HISTORY: Ms. Birmingham is a pleasant, 57-year-old female who has no significant past medical history, who presented to the emergency room on 2017 with concerns about chest pain. The patient resides in [place] and she was visiting some friends in the area for a wedding. Over the past month or so , she has been battling a head cold; however, she noticed some tenderness to her left chest wall as well as redness. She had a chest x-ray that showed left upper lobe infiltrates during her ED evaluation; however, her white count was essentially normal. She was also noted to have elevated CRP; however her troponin and EKG showed no evidence of any acute coronary syndrome. Given her ongoing symptoms and the findings of chest wall cellulitis, she was admitted under the Hospitalists service for further evaluation and antibiotics. HOSPITAL COURSE: The patient was admitted under the Hospitalists Service. She had further work-up including a chest CTA that revealed no evidence of pulmonary embolism. She was covered prophylactically with antibiotics and cultures were obtained from her blood as well as left chest area where she had some redness and swelling consistent with cellulitis. She also had some difficulty breathing that was likely related to her anxiety; however, that was eventually improved with use of O2 at rest as well as given cough medication and occasional nebulizers as needed. She was continued on Levaquin and Mucinex was helpful for her cough suppression. She was also noted to have some hypotension, likely secondary to inflammatory response. Her fever eventually resolved and the patient continued to receive antibiotics. Her appetite was better and her vitals were checked on a regular basis and noticed resolution of her fever. She had some subdiaphragmatic tenderness on the right side for which a gallbladder ultrasound was ordered on 01/07/2018 and was found to show no evidence of acute cholecystitis. The patient continued to improve on a daily basis. PHYSICAL EXAMINATION: On the discharge morning, she had the following for a physical exam: Vital Signs: Her vitals were stable and the patient was afebrile. HEENT: Head was normocephalic, atraumatic. Sclerae anicteric. PERRLA and nasopharynx was no exudate noted. Lungs: Clear to auscultation bilaterally with no wheezes, rales or rhonchi. Heart: Regular rate and rhythm without murmurs or gallops. Abdomen: Soft, nontender, nondistended. Extremities: Without cyanosis, clubbing, or edema. LABORATORY DATA: On discharge, her CRP was repeated. It showed significant resolution with value of 182 upon discharge. Her CBC was rechecked and continued to be within normal limits. DISPOSITION: The patient will be discharged today and plans to catch the nearest flight back home to [place] and she was given scripts for antibiotics as well as Mucinex to take as needed for her cough. DISCHARGE MEDICATIONS: 1. Acetylcysteine 500 mg p.o. b.i.d. 2. Calcium Carbonate 150 mg p.o. daily. 3. Vitamin D tablets 5,000 units p.o. daily. 4. Magnesium Oxide 250 mg p.o. daily. 5. Selenium 100 mcg p.o. daily. 6. Taurine 2,000 mg p.o. daily. 7. Vitamin B complex one cap p.o. daily. 8. Zinc 50 mg p.o. daily. 9. Cefuroxime 500 mg p.o. b.i.d. 10. Mucinex 600 mg p.o. b.i.d. JAMIE MORROW [id number]/[facility] #: [id number] [place]
== END 2018-01-09 12:55 | disposition home or self-care (01) | DRG 139 ==
LOC: ED 08:46 → MED 13:14 → OBSVTOIN 01-06 14:30
PROVIDERS: ADMIT Hospitalist; ATTEND Internal Medicine
PROC: 0HB5XZX Excision of Chest Skin, External Approach, Diagnostic (ICD-10-PCS; principal; 2018-01-06)
DX: J18.8 Other pneumonia, unspecified organism (principal); L03.313 Cellulitis of chest wall; F41.9 Anxiety disorder, unspecified; I95.9 Hypotension, unspecified; R10.11 Right upper quadrant pain; Z82.49 Family history of ischemic heart disease and other diseases of the circulatory system; Z88.0 Allergy status to penicillin
CPT/HCPCS: 36415; 71046; 71275; 76705; 80048; 80053; 80202; 81003; 82550; 82565; 83605; 84145; 84155; 84165; 84484; 84520; 85025; 85610; 85730; 86140; 87040; 87070; 87077; 87205; 87899; 93005; 94640; 99283; A9270-GY; G0378; J0696; J1885; J3370; Q9967